=== PATIENT | female | born 1955 | race Two or more races ===

== ENCOUNTER 2022-12-10 13:08 | Outpatient (CLI) | payer OTHER | END 2022-12-10 13:20 | disposition home or self-care (01) | LOC: RAD 13:08 | PROVIDERS: ATTEND Orthopaedic Surgery | DX: M25.561 Pain in right knee (principal) ==

== ENCOUNTER → 2022-12-17 06:10 | Outpatient (CLI) | payer OTHER | END | disposition home or self-care (01) | LOC: LAB 06:10 | PROVIDERS: ATTEND Orthopaedic Surgery | DX: M85.9 Disorder of bone density and structure, unspecified (principal); E83.42 Hypomagnesemia; E56.1 Deficiency of vitamin K ==

== ENCOUNTER 2024-01-28 06:05 | Outpatient (CLI) | payer OTHER | END 2024-01-28 06:06 | disposition home or self-care (01) | LOC: LAB 06:05 | PROVIDERS: ATTEND Orthopaedic Surgery | DX: E55.9 Vitamin D deficiency, unspecified (principal); M85.9 Disorder of bone density and structure, unspecified; E56.1 Deficiency of vitamin K ==